=== PATIENT | male | born 1995 | race African-American/Black ===

== ENCOUNTER 2017-07-02 18:32 | Emergency (ER) | payer OTHER ==
[~2017-07-02] VITALS: Ht 170.2 cm; Wt 89.7 kg
[2017-07-02 18:51] LABS: HEMATOCRIT 45.9 % (38.0-50.0); HEMOGLOBIN 15.8 G/DL (12.5-16.6); MCH 31.9 PG (29.0-34.0); MCHC 34.4 G/DL (30.0-36.0); MCV 92.7 FL (86-99); PLATELET COUNT 336 K/uL (156-360); RBC DIS.WIDTH-CV 11.8 % (11.8-14.6); RBC DIS.WIDTH-SD 39.8 % (39-53); RED BLOOD COUNT 4.95 M/uL (4.00-5.50); WHITE BLOOD COUNT 14.8 K/uL (4.1-10.2)
[2017-07-02 18:59] LABS: ALBUMIN 4.8 g/dL (3.2-4.8)
[2017-07-02 19:00] LABS: CHLORIDE 104 mEq/L (99-109); POTASSIUM 4.1 mEq/L (3.7-5.4); SODIUM 141 mEq/L (136-147)
[2017-07-02 19:02] LABS: GLUCOSE 97 mg/dL (70-99); TOTAL PROTEIN 7.7 g/dL (6.4-8.3)
[2017-07-02 19:04] LABS: TOTAL BILIRUBIN 1.1 mg/dL (0.0-1.0)
[2017-07-02 19:05] LABS: ALKALINE PHOSPHATASE 64 IU/L (3-129)
[2017-07-02 19:06] LABS: CREATININE 0.9 mg/dL (0.6-1.3); GFR ESTIMATE (CALCULATED) > 59 mL/min/ (58.99-99999)
[2017-07-02 19:07] LABS: AST (GOT) 28 IU/L (2-34); UREA NITROGEN (BUN) 9 mg/dL (9-23)
[2017-07-02 19:08] LABS: ALT (GPT) 29 IU/L (3-49)
[2017-07-02 21:03] LABS: LIPASE 14 U/L (1.0-51.0)
[2017-07-02 21:10] LABS: APPEARANCE CLEAR ((CLEAR)); BILIRUBIN NEGATIVE; BLOOD NEGATIVE; COLOR AMBER ((YELLOW)); GLUCOSE (STRIP) NEGATIVE; KETONES 80; LEUKOCYTES NEGATIVE; NITRITE NEGATIVE; PROTEIN (STRIP) 30; SPECIFIC GRAVITY 1.028 (1.000-1.030); UCUL ADDED? NO
[2017-07-02 21:30] LABS: BACTERIA 1+ /HPF; EPITHELIAL CELLS RARE /HPF; MUCUS 3+ /LPF; RED BLOOD CELLS 0-5 /HPF (0-5); WHITE BLOOD CELLS 0-5 /HPF (0-5)
[2017-07-02 22:51] LABS: SOURCE URINE
[2017-07-02] MEDS ORDERED: ZOFRAN ODT8 MG PO (23:07)
[2017-07-02] MEDS ORDERED: BENTYL20 MG PO (23:07)
[2017-07-02] MEDS ORDERED: ZANTAC300 MG PO (23:07)
[2017-07-02 23:36] LABS: BASOPHIL (%) 0.5 % (0-1); BASOPHIL COUNT 0.1 K/uL (0-0.1); EOSINOPHIL (%) 0.3 % (0-5); IMMATURE GRANULOCYTE (%) 0.2 % (0.0-0.7); LYMPHOCYTE (%) 13.9 % (15-42); MONOCYTE (%) 5.5 % (3-12); MONOCYTE COUNT 0.8 K/uL (0-0.8); NEUTROPHIL (%) 79.6 % (45-76); NEUTROPHIL COUNT 11.5 K/uL (1.8-6.4)
[2017-07-03 00:13] VITALS: BP 125/77
[2017-07-03 12:16] LABS: CHLAMYDIA TRACHOMATIS NEGATIVE; NEISSERIA GONORRHOEAE NEGATIVE
== END 2017-07-03 00:14 | disposition home or self-care (01) ==
LOC: EXP 18:32 → EME 18:32 → EXP 07-03 00:14
PROVIDERS: Physician Assistant
DX: R10.13 Epigastric pain (principal); R11.2 Nausea with vomiting, unspecified; E86.0 Dehydration; N20.0 Calculus of kidney
CPT/HCPCS: 74177; 80053; 81003; 83690; 85025; 85027; 87086; 87491; 87591; 99281; 99285; J0500; J1885; J7030

== ENCOUNTER 2017-07-04 03:09 | Emergency (ER) | payer OTHER ==
[~2017-07-04] VITALS: Ht 170.2 cm; Wt 90.7 kg
[~2017-07-04 03:09] MED LIST: BENTYL20 MG PO; ZANTAC300 MG PO; ZOFRAN ODT8 MG PO
[2017-07-04 04:23] LABS: ALBUMIN 4.6 g/dL (3.2-4.8)
[2017-07-04 04:24] LABS: CHLORIDE 106 mEq/L (99-109); SODIUM 138 mEq/L (136-147)
[2017-07-04 04:26] LABS: GLUCOSE 106 mg/dL (70-99); TOTAL PROTEIN 8.1 g/dL (6.4-8.3)
[2017-07-04 04:28] LABS: TOTAL BILIRUBIN 0.9 mg/dL (0.0-1.0)
[2017-07-04 04:29] LABS: ALKALINE PHOSPHATASE 53 IU/L (3-129)
[2017-07-04 04:30] LABS: CREATININE 1.1 mg/dL (0.6-1.3); GFR ESTIMATE (CALCULATED) > 59 mL/min/ (58.99-99999)
[2017-07-04 04:31] LABS: UREA NITROGEN (BUN) 9 mg/dL (9-23)
[2017-07-04 04:32] LABS: ALT (GPT) 30 IU/L (3-49)
[2017-07-04 04:33] LABS: LIPASE 13 U/L (1.0-51.0)
[2017-07-04 04:47] LABS: AST (GOT) 70 IU/L (2-34)
[2017-07-04 04:53] LABS: HEMATOCRIT 45.3 % (38.0-50.0); HEMOGLOBIN 15.5 G/DL (12.5-16.6); MCH 31.8 PG (29.0-34.0); MCHC 34.2 G/DL (30.0-36.0); RBC DIS.WIDTH-CV 11.8 % (11.8-14.6); RBC DIS.WIDTH-SD 40.5 % (39-53); RED BLOOD COUNT 4.87 M/uL (4.00-5.50); WHITE BLOOD COUNT 12.2 K/uL (4.1-10.2)
[2017-07-04 04:54] LABS: PLATELET COUNT 104 K/uL (156-360)
[2017-07-04 06:41] VITALS: BP 117/69
[2017-07-04 07:05] LABS: POTASSIUM 4.4 MEQ/L (3.7-5.4)
== END 2017-07-04 06:48 | disposition home or self-care (01) ==
LOC: EME 03:09
PROVIDERS: Emergency Medicine
DX: K59.00 Constipation, unspecified (principal); R11.2 Nausea with vomiting, unspecified; R74.0 Nonspecific elevation of levels of transaminase and lactic acid dehydrogenase [LDH]
CPT/HCPCS: 80053; 81003; 83690; 84999; 85027; 99281; 99285; J2405; J7030